=== PATIENT | male | born 1980 | race Hispanic/Latino ===

== ENCOUNTER 2018-04-19 19:30 | Emergency (ER) | payer OTHER ==
[2018-04-19 19:48] VITALS: RESP 18; O2SAT 96
--- NOTE | 2018-04-19 20:31 | ED PDOC ---
HPI: General Adult Chief Complaint (Provider): sent by PMD for abnormal ekg History Per: Patient History/Exam Limitations: no limitations Additional Complaint(s): 37 y/o male sent by PMD for evaluation of abnormal EKG. Patient states he saw his doctor today to get a refill on his Lexapro 5mg medication and they did an EKG and was told to go straight to the ED. Patient states sometimes he will experience midsternal chest pain, maybe once a month, last episode a few weeks ago; but states its usually after working out his chest at the gym and is reproducible. Patient denies headache, dizziness, nausea/vomiting, extremity numbness/weakness, chest pain, shortness of breath, palpitations, abdominal pain, leg pain/swelling. <Jennifer Cuellar - Last Filed: 04/19/18 23:01> <Faviola Berger - Last Filed: 04/23/18 12:09> Time Seen by Provider: 04/19/18 20:10 Chief Complaint (Nursing): Chest Pain Past Medical History Reviewed: Historical Data, Nursing Documentation, Vital Signs Vital Signs: Last Vital Signs Temp 97.7 F 04/19/18 19:44 Pulse 83 04/19/18 19:44 Resp 18 04/19/18 19:44 BP 120/75 04/19/18 19:44 Pulse Ox 96 04/19/18 19:44 - Medical History PMH: Depression - Surgical History Surgical History: No Surg Hx - Family History Family History: States: No Known Family Hx - Living Arrangements Living Arrangements: With Family - Social History Current smoker - smoking cessation education provided: No Alcohol: Social Drugs: Denies <Jennifer Cuellar - Last Filed: 04/19/18 23:01> Vital Signs: Last Vital Signs Temp 97.9 F 04/19/18 22:40 Pulse 72 04/19/18 22:40 Resp 18 04/19/18 22:40 BP 123/60 04/19/18 22:40 Pulse Ox 96 04/19/18 23:02 <Faviola Berger - Last Filed: 04/23/18 12:09> - Allergies Allergies/Adverse Reactions: Allergies Allergy/AdvReac Type Severity Reaction Status Date / Time No Known Allergies Allergy Verified 04/19/18 19:56 Review of Systems ROS Statement: Except As Marked, All Systems Reviewed And Found Negative <Jennifer Cuellar - Last Filed: 04/19/18 23:01> Physical Exam - Reviewed Nursing Documentation Reviewed: Yes Vital Signs Reviewed: Yes - Physical Exam Appears: Positive for: Well, Non-toxic, No Acute Distress Head Exam: Positive for: ATRAUMATIC, NORMAL INSPECTION, NORMOCEPHALIC Skin: Positive for: Normal Color Eye Exam: Positive for: Normal appearance ENT: Positive for: Normal ENT Inspection Cardiovascular/Chest: Positive for: Regular Rate, Rhythm Respiratory: Positive for: Normal Breath Sounds Gastrointestinal/Abdominal: Positive for: Normal Exam Back: Positive for: Normal Inspection Extremity: Positive for: Normal ROM Neurologic/Psych: Positive for: Alert, Oriented (x3) <Jennifer Cuellar - Last Filed: 04/19/18 23:01> - Laboratory Results Result Diagrams: 04/19/18 21:00 04/19/18 21:00 - ECG ECG: Positive for: Viewed By Me (reviewed by ED attending) ECG Rhythm: Positive for: Sinus Rhythm O2 Sat by Pulse Oximetry: 96 - Progress ED Course And Treament: EKG in ED is NSR; will check cbc, cmp, trop Patient refusing playground monitor at this time 22:[address] John Nina 22:20 Patient wishes to be discharged at this time Patient educated on findings, advised follow up with Dr. Nina in am Return precautions given Patient requires no further intervention in the ED and is stable for discharge at this time 23:00 Dr. John Nina aware of case, agrees with plan to d/c and f/up outpatient tomorrow <Jennifer Cuellar - Last Filed: 04/19/18 23:01> - Laboratory Results Result Diagrams: 04/19/18 21:00 04/19/18 21:00 <Faviola Berger - Last Filed: 04/23/18 12:09> Medical Decision Making Medical Decision Making: Reviewed chart. Agree with PA assessment and plan. <Faviola Berger - Last Filed: 04/23/18 12:09> Disposition - Patient ED Disposition Is Patient to be Admitted: No Counseled Patient/Family Regarding: Studies Performed, Diagnosis, Need For Followup - Disposition Disposition: Routine/Home Disposition Time: 22:21 <Jennifer Cuellar - Last Filed: 04/19/18 23:01> <Faviola Berger - Last Filed: 04/23/18 12:09> - Clinical Impression Clinical Impression: Normal exam - Disposition Condition: GOOD RITU Risk Score for UA/NSTEMI - RITU Risk Score Age > 64: NO 3 or more CAD Risk Factors: NO Known CAD (Stenosis greater than 50%): NO Aspirin use in past 7 days: NO Severe Angina: NO EKG ST changes greater than 0.5mm: NO Positive Cardiac Marker: NO RITU Score: 0 % risk at 14 days of: all cause mortality, new or recurrent HI, or severe recurrent ischemia requiring urgen revascularization: 5% <Jennifer Cuellar - Last Filed: 04/19/18 23:01>
[2018-04-19 21:09] LABS: BASO # 0.1 K/uL (0.0-0.2); BASO % 1.1 % (0.0-2.0); EOS # 0.1 K/uL (0.0-0.7); EOS % 1.8 % (0.0-4.0); HEMOGLOBIN 15.1 g/dL (12.0-18.0); MEAN CELL VOLUME 85.6 fl (80.0-94.0); MEAN CORPUSCULAR HEMOGLOBIN 29.8 pg (27.0-31.0); MEAN CORPUSCULAR HGB CONC 34.9 g/dL (33.0-37.0); MEAN PLATELET VOLUME 9.7 fl (7.2-11.7); MONO # 0.6 K/uL (0.0-0.8); MONO % 8.4 % (0.0-10.0); NEUT # 3.2 K/uL (1.8-7.0); NEUT % 45.7 % (50.0-75.0); NRBC % 0.1 % (0.0-0.0); RBC 5.06 Mil/uL (4.40-5.90); RED CELL DISTRIBUTION WIDTH 13.1 % (11.5-14.5)
[2018-04-19 21:20] LABS: ALB/GLOB RATIO 1.5 (1.0-2.1); ALBUMIN 4.4 g/dL (3.5-5.0); ALT/SGPT 27 U/L (21-72); AST/SGOT 28 U/L (17-59); BLOOD UREA NITROGEN 14 mg/dl (9-20); CALCIUM 9.4 mg/dL (8.4-10.2); GFR NON-AFRICAN AMERICAN > 60
[2018-04-20 02:44] VITALS: BP 123/60; PULSE 72; TEMP 97.9
== END 2018-04-19 22:40 | disposition home or self-care (01) ==
LOC: H.ER 19:30
DX: R94.31 Abnormal electrocardiogram [ECG] [EKG] (principal)